=== PATIENT | female | born 1960 | race Caucasian/White ===

== ENCOUNTER → 2020-06-20 00:30 | Outpatient (CLI) | payer BC, SELFPAY ==
[2020-06-20 20:39] LABS: SARS-CoV-2 RNA PCR Negative
== END ==
PROVIDERS: PCP Family Medicine; Visit Provider Internal Medicine Gastroenterology
DX: Z01.812 Encounter for preprocedural laboratory examination (principal); Z20.822 Contact with and (suspected) exposure to COVID-19
CPT/HCPCS: C9803; U0003; U0005

== ENCOUNTER 2020-06-24 01:09 | Day surgery (SDC) | payer BC, SELFPAY ==
[2020-06-05 14:16] VITALS: BMI 27.6
[2020-06-24] MEDS: LACTATED RINGERS 1,000 ML 150 ML IV CONT (10:40)
[2020-06-24 10:42] VITALS: BP 117/63; PULSE 71; RESP 16; TEMP 36.6; O2SAT 96; BMI 26.9
--- NOTE | 2020-06-24 10:59 | WPDANESEPPF ---
Anes - Initial Pre Proc Eval Procedure: Operation Date: 06/24/20 11:00 Proposed Procedures p Screening Colonoscopy - Arnaud Darling MD Date/Time: 06/24/20 10:59 Surgeon: Arnaud Darling MD Pre Op Diagnosis: Neoplasm Screening Patient Data Age: 60 Gender: F Height: 5 ft 3 in Weight: 68.8 kg Last Vital Signs Temp 36.6 C 06/24/20 10:42 Pulse 71 06/24/20 10:42 Resp 16 06/24/20 10:42 BP 117/63 06/24/20 10:42 Pulse Ox 96 06/24/20 10:42 Allergies Allergy/AdvReac Type Severity Reaction Status Date / Time No Known Allergies Allergy Unverified 06/24/20 10:41 Home Medications Medication Instructions Recorded Confirmed Type escitalopram oxalate 20 mg tablet 20 mg PO DAILY 05/31/20 06/05/20 History trazodone 50 mg tablet 50 mg PO BID 05/31/20 06/05/20 History valacyclovir 1 gram tablet 1,000 mg PO DAILY 05/31/20 06/05/20 History valbenazine 80 mg capsule 80 mg PO DAILY 05/31/20 06/05/20 History sodium,potassium,mag sulfates See Rx Instructions .ROUTE 06/02/20 Rx [Suprep Bowel Prep Kit] .COMPLEX #1 ml sertraline [Zoloft] 20 mg PO DAILY 06/05/20 06/05/20 History Patient hx anesthesia problems: none Family hx anesthesia problems: none PMFSH Past Medical History Medical History Anxiety Depression Diverticulitis Herpesvirus infection Surgical History Surgical History History of appendectomy Social History Social History Smoking status: Never smoker Alcohol intake: current Substance use: unknown Substance use type: unknown Spiritual care concerns: No Anes - Eval Final PreProcedure Day of Procedure 06/24/20 10:59 Patient weight: overweight Heart: regular rate and rhythm Lungs: clear to auscultation Airway: Mallampati scale class II Neurological: alert and oriented Last oral intake: >/= 8 hours ASA classification: II Emergent: no Anesthetic plan: proceed Anesthesia type and monitoring: general GIVS and standard monitoring Informed Consent: The patient's anesthetic plan and its attendant risks and benefits were discussed with the patient/family/POA. Questions were solicited and answers provided to the satisfaction of the patient/family/POA.
--- NOTE | 2020-06-24 11:37 | PM.HPGS ---
History of Present Illness History of Present Illness Consent: Risks, benefits, and alternatives have been discussed and questions answered. Patient agrees to proceed with procedure. Chief complaint: Neoplasm Screening Narrative: Marly Dewitt is a 60 year old female with colon polyp 6 years ago, 6 weeks ago also had diverticulitis now asymptomatic Review of Systems Constitutional: Constitutional: Denies headache(s) and Denies weakness Eyes: Eyes: Denies blurry vision ENT: Reports Normal hearing present, Denies headache(s) and Denies neck pain Cardiovascular: Cardiovascular: Denies chest pain and Denies dyspnea Respiratory: Respiratory: Denies dyspnea Gastrointestinal: Gastrointestinal: Reports no additional gastrointestinal complaints Genitourinary: Genitourinary: Denies dysuria Musculoskeletal: Musculoskeletal: Denies neck pain Integumentary/Breasts: Skin/Breast: Denies dry skin Neurologic: Reports Normal hearing present, Denies headache(s) and Denies weakness Psychiatric: Psychiatric: Denies anxiety Endocrine: Endocrine: Denies change in body appearance Hematologic/Lymphatic: Hematologic/Lymphatic: Denies easy bleeding Allergic/Immunologic: Allergic/Immunologic: Denies urticaria PMF Past Medical History Medical History Anxiety Depression Diverticulitis Herpesvirus infection Surgical History Surgical History History of appendectomy Social History Social History Smoking status: Never smoker Alcohol intake: current Substance use: unknown Substance use type: unknown Spiritual care concerns: No Meds Home Medications and Allergies Home Medications Medication Instructions Recorded Confirmed Type escitalopram oxalate 20 mg tablet 20 mg PO DAILY 05/31/20 06/05/20 History trazodone 50 mg tablet 50 mg PO BID 05/31/20 06/05/20 History valacyclovir 1 gram tablet 1,000 mg PO DAILY 05/31/20 06/05/20 History valbenazine 80 mg capsule 80 mg PO DAILY 05/31/20 06/05/20 History sodium,potassium,mag sulfates See Rx Instructions .ROUTE 06/02/20 Rx [Suprep Bowel Prep Kit] .COMPLEX #1 ml sertraline [Zoloft] 20 mg PO DAILY 06/05/20 06/05/20 History Allergies Allergy/AdvReac Type Severity Reaction Status Date / Time No Known Allergies Allergy Unverified 06/24/20 10:41 Vital Signs Vital Signs - 24 hr 06/24/20 10:42 Temperature 98 F Pulse Rate 71 Respiratory Rate 16 Blood Pressure 117/63 Pulse Oximetry 96 Exam Const: General: comfortable and no acute distress HENMT: General nose exam: Normal nares present Eyes: General: appearance normal, both eyes and all related structures Neck: Neck: no JVD Resp: Auscultation: clear to auscultation bilaterally Cardio: Rate: regular rate Rhythm: regular rhythm GI: Inspection: non-distended GI Palp: Yes Soft to palpation Skin: General skin exam: normal color Neuro: General: gait normal Speech: normal speech Extrem: General: normal to inspection Psych: Mental Status: mental status grossly normal Assessment and Plan Assessment and plan (1) Adenomatous colon polyp: Code(s): D12.6 - Benign neoplasm of colon, unspecified Status: Acute Assessment and Plan: proceed with colonoscopy (2) Diverticulitis: Code(s): K57.92 - Diverticulitis of intestine, part unspecified, without perforation or abscess without bleeding Status: Inactive Assessment and Plan: resolved
[2020-06-24 12:02] VITALS: BP 88/51; PULSE 58; RESP 11; O2SAT 94
[2020-06-24 12:12] VITALS: BP 90/50; PULSE 61; RESP 13; O2SAT 95
[2020-06-24 12:22] VITALS: BP 101/56; PULSE 60; RESP 16; O2SAT 97
== END 2020-06-24 12:35 | disposition home or self-care (01) ==
PROVIDERS: PCP Family Medicine; Visit Provider Internal Medicine Gastroenterology
PROC: 0DJD8ZZ Inspection of Lower Intestinal Tract, Via Natural or Artificial Opening Endoscopic (ICD-10-PCS; CPT 45378; principal; 2020-06-24 11:00)
DX: Z12.11 Encounter for screening for malignant neoplasm of colon (principal); D12.3 Benign neoplasm of transverse colon; K57.30 Diverticulosis of large intestine without perforation or abscess without bleeding; K64.8 Other hemorrhoids; Z87.19 Personal history of other diseases of the digestive system; B00.9 Herpesviral infection, unspecified; F41.8 Other specified anxiety disorders
CPT/HCPCS: 45380; 88305; J2704; J7120